=== PATIENT | female | born 1955 | race American Indian/Alaskan Native ===

== ENCOUNTER 2017-03-08 09:18 | Outpatient (CLI) | payer MEDICAID ==
--- NOTE | 2017-03-08 10:48 | Mammography Report ---
BILATERAL MAMMOGRAM with CAD: HISTORY:Cancer screening. This is a new baseline study since the patient's prior mammogram was performed in [place] was 11 years ago. FINDINGS: The breasts are almost entirely fat (<25% glandular). No mass, distortion, suspicious calcification, or skin change is seen. IMPRESSION: Negative mammogram. There is no mammographic evidence of malignancy. RECOMMENDATION: Follow-up per ACS guidelines. BI-RADS CATEGORY: 1 = Negative ACR BI-RADS MAMMOGRAPHIC CODES: 0 = Needs additional imaging evaluation; 1 = Negative; 2 = Benign; 3 = Probably benign; 4 = Suspicious; 5 = Malignant; 6 = Known biopsy-proven malignancy COMMENT: 1. Dense breast tissue, i.e., adenosis, fibrocystic changes, etc., may obscure an underlying neoplasm. 2. Approximately 10% of cancers are not detected with mammography. 3. A negative mammography report should not delay biopsy if a clinically suspicious mass is present. COMMENT: Patient follow-up letters are generated in [employer].
== END 2017-03-08 09:19 | disposition home or self-care (01) ==
LOC: MAMMO 09:18
PROVIDERS: ATTEND Internal Medicine
DX: Z12.31 Encounter for screening mammogram for malignant neoplasm of breast (principal)
CPT/HCPCS: 77067; G0202

== ENCOUNTER 2017-10-23 08:35 | Inpatient (IN) | payer MEDICAID, OTHER ==
[2017-10-23] MEDS ORDERED: ASPIRIN PO ONE (08:52)
[2017-10-23] MEDS ORDERED: NORCO 5/325 PO ONE (09:42)
[2017-10-23] MEDS ORDERED: APRESOLINE IV ONE ×2 (09:42→14:39)
[2017-10-23 09:57] LABS: Alanine Aminotransferase 22 units/L (7-56); Albumin 4.4 g/dL (3.9-5)
[2017-10-23 09:58] LABS: Basophils % (Auto) 0.5 % (0.0-1.8); Hematocrit 42.9 % (30.3-42.9); Hemoglobin 14.2 gm/dl (10.1-14.3); Lymphocytes # (Auto) 1.3 K/mm3 (1.2-5.4); Lymphocytes % (Auto) 27.4 % (13.4-35.0); Mean Corpuscular HGB Conc 33 % (30-34); Mean Corpuscular Hemoglobin 28 pg (28-32); Mean Corpuscular Volume 83 fl (79-97); Monocytes # (Auto) 0.3 K/mm3 (0.0-0.8); Monocytes % (Auto) 5.5 % (0.0-7.3); Platelet Count 265 K/mm3 (140-440); Red Blood Count 5.15 M/mm3 (3.65-5.03); Red Cell Distribution Width 15.1 % (13.2-15.2)
--- NOTE | 2017-10-23 10:03 | XRay Report ---
AP CHEST : 10/23/17 08:35:00 CLINICAL: Chest pain. COMPARISON:None FINDINGS: The heart is large. Redistribution of pulmonary blood flow to the upper lobes. The lungs are slightly underexpanded but clear. The bones and soft tissues are unremarkable. IMPRESSION: Cardiomegaly and pulmonary venous hypertension. No pulmonary edema no pleural effusion.
[2017-10-23 10:06] LABS: Bilirubin,Direct < 0.2 mg/dL (0-0.2)
[2017-10-23 10:07] LABS: BUN/Creatinine Ratio 17; Blood Urea Nitrogen 12 mg/dL (7-17); Calcium 9.4 mg/dL (8.4-10.2); Hemolysis Index 3
--- NOTE | 2017-10-23 11:11 | Emergency Department Report ---
ED Chest Pain HPI - General Chief Complaint: Chest Pain Stated Complaint: CHEST PAIN Time Seen by Provider: 10/23/17 09:25 Source: patient, EMS Mode of arrival: Stretcher Limitations: No Limitations - History of Present Illness Initial Comments: 62-year-old female with past medical history of previous CVA with residual right -sided deficits, elevated cholesterol, and hypertension presents to the hospital. Left-sided chest pain since last night. Patient's pain is sharp, intermittent, worse with palpation, movement, and coughing. Pain moderate in intensity. No shortness of breath. Positive diaphoresis. No fever. Patient cannot recall if she's ever had a stress test. No recent trauma or heavy lifting reported. Severity scale (0 -10): 5 - Related Data Allergies Allergy/AdvReac Type Severity Reaction Status Date / Time Penicillins Allergy Mild Angioedema Verified 10/23/17 09:56 Heart Score - HEART Score History: Slightly suspicious EKG: Non-specific Age: 45-65 Risk factors: > 3 risk factors or hx of atherosclerotic disease Troponin: < normal limit HEART Score: 4 ED Review of Systems ROS: Stated complaint: CHEST PAIN Other details as noted in HPI Comment: All other systems reviewed and negative Other: Constitutional: No fevers chills Eyes: No eye pain visual changes ENT: No ear pain or throat pain Neck: Denies pain Respiratory: Denies significant cough Cardiovascular: As per HPI GI: Denies abdominal pain, nausea, vomiting, diarrhea : Denies dysuria Musculoskeletal: Denies back pain, Skin: Denies rash, lesions, erythema Neurologic: Denies headache, numbness, weakness Psychiatric: Denies suicidal ideation, hallucinations ED Past Medical Hx - Past Medical History Hx CVA: Yes Hx Heart Attack/AMI: Yes - Social History Smoking Status: Former Smoker Substance Use Type: Marijuana ED Physical Exam - General Limitations: No Limitations - Other Other exam information: General: No limitations, patient is alert in no acute distress Head exam: Atraumatic, normocephalic Eyes exam: Normal appearance ENT: Moist mucous membrane, normal oropharynx Neck exam: Normal inspection, full range of motion, no meningismus nontender Respiratory exam: Clear to auscultation bilateral, no wheezes, rales, crackles. Reproducible left lower anterior chest wall tenderness Cardiovascular: Normal rate and rhythm Abdomen: Soft, nondistended, and nontender, with normal bowel sounds, no rebound, or guarding Extremity: Full range of motion normal inspection no deformity, no calf tenderness or edema Back: Normal Inspection, full range of motion, no tenderness Neurologic: Alert, oriented x3, cranial nerves intact, no motor or sensory deficit Psychiatric: normal affect, normal mood Skin: Warm, dry, intact ED Course Vital Signs 10/23/17 10/23/17 10/23/17 08:47 09:01 09:57 Temperature 98.6 F Pulse Rate 65 67 61 Respiratory 19 Rate Blood Pressure 209/77 200/91 206/82 O2 Sat by Pulse 99 Oximetry - Reevaluation(s) Reevaluation #1: 10/23/17 11:38 BP and pain improved with meds JOHN score - John Score Age > 65: (0) No Aspirin use within the Past 7 Days: (0) No 3 or more CAD Risk Factors: (1) Yes 2 or more Angina events in past 24 hrs: (1) Yes Known CAD with more than 50% Stenosis: (0) No Elevated Cardiac Markers: (0) No ST Deviation Greater than 0.5mm: (0) No JOHN Score: 2 ED Medical Decision Making - Lab Data Result diagrams: 10/23/17 09:24 10/23/17 09:24 Lab Results 10/23/17 10/23/17 10/23/17 Range/Units 09:24 09:24 09:24 WBC 4.7 (4.5-11.0) K/mm3 RBC 5.15 H (3.65-5.03) M/mm3 Hgb 14.2 (10.1-14.3) gm/dl Hct 42.9 (30.3-42.9) % MCV 83 (79-97) fl MCH 28 (28-32) pg MCHC 33 (30-34) % RDW 15.1 (13.2-15.2) % Plt Count 265 (140-440) K/mm3 Lymph % (Auto) 27.4 (13.4-35.0) % [place] % (Auto) 5.5 (0.0-7.3) % Eos % (Auto) 1.0 (0.0-4.3) % Baso % (Auto) 0.5 (0.0-1.8) % Lymph # 1.3 (1.2-5.4) K/mm3 [place] # 0.3 (0.0-0.8) K/mm3 Eos # 0.0 (0.0-0.4) K/mm3 Baso # 0.0 (0.0-0.1) K/mm3 Seg Neutrophils % 65.6 (40.0-70.0) % Seg Neutrophils # 3.1 (1.8-7.7) K/mm3 Sodium 139 (137-145) mmol/L Potassium 4.3 (3.6-5.0) mmol/L Chloride 100.0 (98-107) mmol/L Carbon Dioxide 23 (22-30) mmol/L Anion Gap 20 mmol/L BUN 12 (7-17) mg/dL Creatinine 0.7 (0.7-1.2) mg/dL Estimated GFR > 60 ml/min BUN/Creatinine Ratio 17 % Glucose 117 H (65-100) mg/dL Calcium 9.4 (8.4-10.2) mg/dL Total Bilirubin 0.40 (0.1-1.2) mg/dL Direct Bilirubin < 0.2 (0-0.2) mg/dL Indirect Bilirubin 0.2 mg/dL AST 17 (5-40) units/L ALT 22 (7-56) units/L Alkaline Phosphatase 113 (35-129) units/L Troponin T < 0.010 (0.00-0.029) ng/mL Total Protein 8.1 (6.3-8.2) g/dL Albumin 4.4 (3.9-5) g/dL Albumin/Globulin Ratio 1.2 % - EKG Data -: EKG Interpreted by Or EKG shows normal: sinus rhythm, axis (58), QRS complexes (114), ST-T waves (ant t inv) Rate: bradycardia (59) - EKG Data When compared to previous EKG there are: previous EKG unavailable - Radiology Data Radiology results: report reviewed Chest x-ray: Cardiomegaly and pulmonary venous hypertension. No pulmonary edema or effusion - Medical Decision Making Clinically patient's pain appears to be reproducible however, patient has multiple cardiac risk factors and EKG abnormalities without previous available for comparison. Case will be discussed with hospitalist for admission. Patient received IV hydralazine, [place], and aspirin in the ED - Differential Diagnosis chest wall pain, costochondritis, TN, angina, PE Critical Care Time: No Critical care attestation.: If time is entered above; I have spent that time in minutes in the direct care of this critically ill patient, excluding procedure time. ED Disposition Clinical Impression: Chest pain, Uncontrolled hypertension Disposition: OP ADMIT IP TO THIS HOSP Is pt being admited?: Yes Does the pt Need Aspirin: Yes Condition: Stable Instructions: Chest Pain (ED), Hypertension (ED) Time of Disposition: 11:38 (Dr Haney/hosp)
[2017-10-23] MEDS: APRESOLINE IV PRN ×2 (14:49→18:21)
--- NOTE | 2017-10-23 15:26 | History and Physical Report ---
History of Present Illness Date of examination: 10/23/17 Date of admission: 10/23/17 Chief complaint: CC L Sided chest pain since Last night History of present illness: History of Present Illness 62-year-old AA female with past medical history of previous CVA with residual right-sided deficits, Hyperlipidemia and hypertension presents to the hospital with left-sided chest pain since last night. Patient's pain is sharp, intermittent, worse with palpation, movement, and coughing. Pain moderate in intensity. No shortness of breath. Positive diaphoresis. No fever. Patient cannot recall if she's ever had a stress test. No recent trauma or heavy lifting reported. Past Medical History Hx CVA: Yes Hx Heart Attack/AMI: Yes Social History Smoking Status: Former Smoker Substance Use Type: Marijuana Surg hx N/A Fam Hx htn Review of Systems Stated complaint: CHEST PAIN Other details as noted in HPI Comment: All other systems reviewed and negative Other: Constitutional: No fevers chills Eyes: No eye pain visual changes ENT: No ear pain or throat pain Neck: Denies pain Respiratory: Denies significant cough Cardiovascular: As per HPI GI: Denies abdominal pain, nausea, vomiting, diarrhea : Denies dysuria Musculoskeletal: Denies back pain, Skin: Denies rash, lesions, erythema Neurologic: Denies headache, numbness, weakness Psychiatric: Denies suicidal ideation, hallucinations Medications and Allergies Allergies Allergy/AdvReac Type Severity Reaction Status Date / Time Penicillins Allergy Mild Angioedema Verified 10/23/17 09:56 Active Meds: Active Medications Hydralazine HCl (Apresoline) 10 mg IV Q3HR PRN PRN Reason: Blood Pressure Last Admin: 10/23/17 14:49 Dose: 10 mg Exam - Constitutional Vitals: Temp Pulse Resp BP Pulse Ox 98.6 F 70 18 213/90 98 10/23/17 08:47 10/23/17 14:49 10/23/17 14:30 10/23/17 14:49 10/23/17 14:30 Results - Labs CBC & Chem 7: 10/23/17 09:24 10/23/17 09:24 Labs: Laboratory Last Values WBC 4.7 K/mm3 (4.5-11.0) 10/23/17 09:24 RBC 5.15 M/mm3 (3.65-5.03) H 10/23/17 09:24 Hgb 14.2 gm/dl (10.1-14.3) 10/23/17:24 Hct 42.9 % (30.3-42.9) 10/23/17: MCV 83 fl (79-97) 10/23/17 09:24 MCH 28 pg (28-32) 10/23/17: MCHC 33 % (30-34) 10/23/17: RDW 15.1 % (13.2-15.2) 10/23/17: Plt Count 265 K/mm3 (140-440) 10/23/17: Lymph % (Auto) 27.4 % (13.4-35.0) 10/23/17: [place] % (Auto) 5.5 % (0.0-7.3) 10/23/17: Eos % (Auto) 1.0 % (0.0-4.3) 10/23/17: Baso % (Auto) 0.5 % (0.0-1.8) 10/23/17: Lymph # 1.3 K/mm3 (1.2-5.4) 10/23/17:24 [place] # 0.3 K/mm3 (0.0-0.8) 10/23/17: Eos # 0.0 K/mm3 (0.0-0.4) 10/23/17: Baso # 0.0 K/mm3 (0.0-0.1) 10/23/17: Seg Neutrophils % 65.6 % (40.0-70.0) 10/23/17: Seg Neutrophils # 3.1 K/mm3 (1.8-7.7) 10/23/17:24 Sodium 139 mmol/L (137-145) 10/23/17:24 Potassium 4.3 mmol/L (3.6-5.0) 10/23/17: Chloride 100.0 mmol/L (98-107) 10/23/17: Carbon Dioxide 23 mmol/L (22-30) 10/23/17: Anion Gap 20 mmol/L 10/23/17: BUN 12 mg/dL (7-17) 10/23/17 09:24 Creatinine 0.7 mg/dL (0.7-1.2) 10/23/17 09:24 Estimated GFR > 60 ml/min 10/23/17 09:24 BUN/Creatinine Ratio 17 % 10/23/17 09:24 Glucose 117 mg/dL (65-100) H 10/23/17 09:24 Calcium 9.4 mg/dL (8.4-10.2) 10/23/17 09:24 Total Bilirubin 0.40 mg/dL (0.1-1.2) 10/23/17 09:24 Direct Bilirubin < 0.2 mg/dL (0-0.2) 10/23/17 09:24 Indirect Bilirubin 0.2 mg/dL 10/23/17 09:24 AST 17 units/L (5-40) 10/23/17 09:24 ALT 22 units/L (7-56) 10/23/17 09:24 Alkaline Phosphatase 113 units/L (35-129) 10/23/17 09:24 Troponin T < 0.010 ng/mL (0.00-0.029) 10/23/17 12:55 Total Protein 8.1 g/dL (6.3-8.2) 10/23/17 09:24 Albumin 4.4 g/dL (3.9-5) 10/23/17 09:24 Albumin/Globulin Ratio 1.2 % 10/23/17 09:24
[2017-10-23] MEDS ORDERED: MORPHINE IV PRN (19:06)
[2017-10-23] MEDS ORDERED: TYLENOL PO PRN (19:06)
[2017-10-23] MEDS ORDERED: DILAUDID IV PRN (19:06)
[2017-10-23] MEDS ORDERED: ZOFRAN IV PRN (19:06)
[2017-10-23] MEDS ORDERED: MILK OF MAGNESIA PO PRN (19:06)
[2017-10-23] MEDS ORDERED: PERCOCET 5/325 PO PRN (19:06)
[2017-10-23] MEDS ORDERED: DULCOLAX PR PRN (19:06)
[2017-10-23] MEDS ORDERED: NORVASC PO ONE (20:00)
[2017-10-23] MEDS ORDERED: D5NS 1,000 ML IV SCH (20:00)
[2017-10-23] MEDS: COZAAR PO SCH (21:09)
[2017-10-23] MEDS: MOBIC PO SCH (21:09)
[2017-10-23] MEDS: COREG PO SCH (22:41)
[2017-10-23] MEDS ORDERED: D5NS 1,000 ML IV ONE (22:49)
[2017-10-24 05:03] LABS: Basophils % (Auto) 0.5 % (0.0-1.8); Eosinophils % (Auto) 0.9 % (0.0-4.3); Hematocrit 43.5 % (30.3-42.9); Hemoglobin 14.5 gm/dl (10.1-14.3); Lymphocytes # (Auto) 1.9 K/mm3 (1.2-5.4); Lymphocytes % (Auto) 41.1 % (13.4-35.0); Mean Corpuscular HGB Conc 33 % (30-34); Mean Corpuscular Hemoglobin 28 pg (28-32); Mean Corpuscular Volume 83 fl (79-97); Monocytes # (Auto) 0.5 K/mm3 (0.0-0.8); Monocytes % (Auto) 10.7 % (0.0-7.3); Platelet Count 266 K/mm3 (140-440); Red Blood Count 5.23 M/mm3 (3.65-5.03)
[2017-10-24 05:27] LABS: Alanine Aminotransferase 18 units/L (7-56); Albumin 4.3 g/dL (3.9-5); BUN/Creatinine Ratio 17; Blood Urea Nitrogen 19 mg/dL (7-17); Calcium 9.4 mg/dL (8.4-10.2); Hemolysis Index 23
[2017-10-24] MEDS: MOBIC PO SCH (09:00)
[2017-10-24] MEDS ORDERED: LOVENOX SUB-Q SCH ×2 (10:00)
[2017-10-24] MEDS ORDERED: LEXISCAN IV ONE ×2 (10:10→10:12)
[2017-10-24] MEDS: COZAAR PO SCH (11:41)
[2017-10-24] MEDS: COREG PO SCH (11:41)
[2017-10-24] MEDS: APRESOLINE IV PRN (11:41)
[2017-10-24] MEDS ORDERED: Fluarix Quad 2017-2018(36 MOS+ IM ONE (12:00)
--- NOTE | 2017-10-24 13:07 | Discharge Summary ---
Providers - Providers Date of Admission: 10/23/17 19:06 Attending physician: KIT MESSINA MD Primary care physician: DIRECTOR OF ACCREDITATION Hospitalization Reason for admission: chest pain Condition: Stable Hospital course: 62-year-old AA female with past medical history of previous CVA with residual right-sided deficits, Hyperlipidemia and hypertension presents to the hospital with left-sided chest pain since last night. Patient's pain is sharp, intermittent, worse with palpation, movement, and coughing. Pain moderate in intensity. No shortness of breath. Positive diaphoresis. No fever. Patient cannot recall if she's ever had a stress test. No recent trauma or heavy lifting reported. Patient's admission appears to have limited taken medication was noted to have elevated blood pressure. Pain was reproducible. The patient' s pain had resolved at the time of reevaluation. She did present to have a stress test which was negative. We did discuss her medications which she does not recall also discussed pharmacy. On restarting the medications that she recalled her blood pressure significantly improved. She is discharge recommendation to follow up with primary care physician. Discharge diagnosis Atypical chest pain likely costochondritis Hyperlipidemia CVA with right hemiplegia Hypertensive urgency resolved Disposition: DC-01 TO HOME OR SELFCARE Time spent for discharge: 35 mins Core Measure Documentation - Palliative Care Palliative Care/ Comfort Measures: Not Applicable - Core Measures Any of the following diagnoses?: none - VTE Discharge Requirements Deep Vein Thrombosis/Pulmonary Embolism Present on Admission: No Exam - Physical Exam Narrative exam: VITAL SIGNS: Reviewed. GENERAL: The patient appeared well nourished and normally developed. Vital signs as documented. HEAD: No signs of head trauma. EYES: Pupils are equal. Extraocular motions intact. EARS: Hearing grossly intact. MOUTH: Oropharynx is normal. NECK: No adenopathy, no JVD. CHEST: Chest with clear breath sounds bilaterally. No wheezes, rales, or rhonchi. CARDIAC: Regular rate and rhythm. S1 and S2, without murmurs, gallops, or rubs. VASCULAR: No Edema. Peripheral pulses normal and equal in all extremities. ABDOMEN: Soft, without detectable tenderness. No sign of distention. No rebound or guarding, and no masses palpated. Bowel Sounds normal. MUSCULOSKELETAL: Good range of motion of all major joints. Except right extremity. Extremities without clubbing, cyanosis or edema. NEUROLOGIC EXAM: Alert and oriented x 3. Right hemiparesis. Speech normal. Follows commands. PSYCHIATRIC: Mood normal. SKIN: No rash or lesions. - Constitutional Vitals: Temp Pulse Resp BP Pulse Ox 97.4 F L 74 13 188/82 97 10/24/17 08:59 10/24/17 11:41 10/24/17 11:31 10/24/17 11:41 10/24/17 11:31 Plan Activity: advance as tolerated, fall precautions Diet: low fat, low cholesterol Special Instructions: record daily BP diary Follow up with: PRIMARY CARE, [Primary Care Provider] - 7 Days [facility] [Outside] - 7 Days Prescriptions: Carvedilol [Coreg] 12.5 mg PO BID #60 tablet ISOSORBIDE MONOnitrate [Imdur ER] 30 mg PO QDAY #30 tablet Losartan [Cozaar] 100 mg PO QDAY #30 tablet
[2017-10-24] MEDS ORDERED: IMDUR PO SCH (14:00)
[2017-10-24 16:44] VITALS: BP 158/65
--- NOTE | 2017-10-25 01:20 | Treadmill Report ---
NUCLEAR CARDIAC IMAGING REPORT INDICATION FOR PROCEDURE: Chest pain. Informed consent was obtained. Lexiscan vasodilator stress testing was performed per standard protocol. Rest and stress nuclear cardiac imaging were performed per protocol with the intravenous administration of 10 mCi of technetium 99m Myoview and 28 mCi of technetium 99m Myoview respectively. Gated SPECT imaging demonstrates a post-stress left ventricular ejection fraction of 62% with normal wall motion. Myocardial perfusion imaging demonstrates no significant cavity change between stress and rest. No significant stress induced perfusion defects were seen. Nuclear cardiac imaging demonstrates grossly normal post-stress left ventricular systolic function with no significant evidence for myocardial ischemia or necrosis. [facility]# [id number] KATERIN/TEX
[2017-10-25] MEDS ORDERED: IMDUR PO SCH (10:00)
== END 2017-10-24 16:00 | disposition home or self-care (01) | DRG 206 ==
LOC: ED 08:35 → 4A 19:06
PROVIDERS: ADMIT Internal Medicine; ATTEND Internal Medicine
PROC: 3E0234Z Introduction of Serum, Toxoid and Vaccine into Muscle, Percutaneous Approach (ICD-10-PCS; principal; 2017-10-24)
DX: M94.0 Chondrocostal junction syndrome [Tietze] (principal); I69.351 Hemiplegia and hemiparesis following cerebral infarction affecting right dominant side; F12.90 Cannabis use, unspecified, uncomplicated; E78.5 Hyperlipidemia, unspecified; I16.0 Hypertensive urgency; I25.2 Old myocardial infarction; Z87.891 Personal history of nicotine dependence; Z88.0 Allergy status to penicillin; Z23 Encounter for immunization
CPT/HCPCS: 36415; 71045; 78452; 80048; 80053; 80074; 83036; 84484; 85025; 90686; 93005; 93010; 93017; A9502; J0360; J1650; J2785; J7042

== ENCOUNTER 2020-02-21 00:32 | Inpatient (IN) | payer MEDICAID ==
--- NOTE | 2020-02-21 00:38 | Emergency Department Report ---
ED Altered Mental Status HPI - General Chief Complaint: Altered Mental Status Stated Complaint: POSS STROKE PUI?: No Time Seen by Provider: 02/21/20 00:32 Source: patient Mode of arrival: Stretcher Limitations: Altered Mental Status - History of Present Illness Initial Comments: Patient is a 64-year-old female that presents emergency room with complaints of altered mental status, decreased responsiveness, confusion. Patient brought in by EMS. Report received from EMS. Per EMS: family states that the patient symptoms started 1 hour ago and the patient was staring off into space and not speaking and not answering questions. Family states that the patient stared off into space for approximately 10 minutes and then started talking but was confused. Patient's last known well time was 1 hour ago. Patient's blood press ure was checked by EMS and the patient blood pressure was 240/120. 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 Patient states she is not sure why she is here. MD Complaint: altered mental status, confusion, decreased responsiveness -: Sudden Severity: severe Consistency of Symptoms: waxing and waning Associated Symptoms: denies other symptoms - Related Data Previous Rx's Medication Instructions Recorded Last Taken Type ISOSORBIDE MONOnitrate [Imdur ER] 30 mg PO QDAY #30 tablet 10/24/17 Unknown Rx Losartan [Cozaar] 100 mg PO QDAY #30 tablet 10/24/17 Unknown Rx carvediloL [Coreg] 12.5 mg PO BID #60 tablet 10/24/17 Unknown Rx Allergies Allergy/AdvReac Type Severity Reaction Status Date / Time Penicillins Allergy Mild Angioedema Verified 10/23/17 09:56 ED Review of Systems ROS: Stated complaint: POSS STROKE Other details as noted in HPI Comment: Unobtainable due to pts medical conditions ED Past Medical Hx - Past Medical History Previous Medical History?: Yes Hx CVA: Yes Hx Heart Attack/AMI: Yes Hx Congestive Heart Failure: No Hx Diabetes: No Hx Asthma: No Hx COPD: No - Surgical History Past Surgical History?: No - Family History Family history: no significant - Social History Smoking Status: Former Smoker Substance Use Type: None - Medications Home Medications: Home Medications Medication Instructions Recorded Confirmed Last Taken Type ISOSORBIDE MONOnitrate [Imdur ER] 30 mg PO QDAY #30 tablet 10/24/17 Unknown Rx Losartan [Cozaar] 100 mg PO QDAY #30 tablet 10/24/17 Unknown Rx carvediloL [Coreg] 12.5 mg PO BID #60 tablet 10/24/17 Unknown Rx ED Physical Exam - General Limitations: Altered Mental Status, Physical Limitation General appearance: alert, in no apparent distress - Head Head exam: Present: atraumatic, normocephalic - Eye Eye exam: Present: normal appearance, PERRL Pupils: Present: normal accommodation - ENT ENT exam: Present: mucous membranes moist - Neck Neck exam: Present: normal inspection. Absent: tenderness, meningismus - Respiratory Respiratory exam: Present: normal lung sounds bilaterally. Absent: respiratory distress, wheezes, rales, rhonchi - Cardiovascular Cardiovascular Exam: Present: regular rate, normal rhythm. Absent: systolic murmur, diastolic murmur, rubs, gallop - GI/Abdominal GI/Abdominal exam: Present: soft, normal bowel sounds - Rectal Rectal exam: Present: deferred - Extremities Exam Extremities exam: Present: normal inspection - Back Exam Back exam: Present: normal inspection - Neurological Exam Neurological exam: Present: alert, altered - Skin Skin exam: Present: warm, dry, intact, normal color. Absent: rash - Assessment Assessment Interval: Baseline - Level of Consciousness 1a. Level of Consciousness: alert/keenly responsive - LOC Questions 1b. LOC Questions: answers both correctly - LOC Command 1c. LOC Commands: performs tasks correctly - Best Gaze 2. Best Gaze: normal - Visual 3. Visual: no visual loss - Facial Palsy 4. Facial Palsy: normal symmetrical movement - Motor Arm 5a. Motor Arm Left: no drift 5b. Motor Arm Right: no drift - Motor Leg 6a. Motor Leg Left: no drift 6b. Motor Leg Right: no drift - Limb Ataxia 7. Limb Ataxia: absent - Sensory 8. Sensory: normal - Best Language 9. Best Language: no aphasia - Dysarthria 10. Dysarthria: mild/moderate dysarthria - Extinction and Inattention 11. Extinction/Inattention: no abnormality - Scoring Total Score: 1 Stroke Severity: Minor Stroke ED Course Vital Signs 02/21/20 02/21/20 02/21/20 00:48 01:00 01:08 Pulse Rate 65 Respiratory 15 16 Rate Blood Pressure 239/91 Blood Pressure [Right] O2 Sat by Pulse 98 98 Oximetry 02/21/20 02/21/20 02/21/20 02:00 02:32 02:34 Pulse Rate 55 L 57 L 57 L Respiratory 17 20 19 Rate Blood Pressure 254/87 254/103 254/103 Blood Pressure [Right] O2 Sat by Pulse 99 98 99 Oximetry 02/21/20 02/21/20 02/21/20 02:36 02:38 02:40 Pulse Rate 59 L 54 L 56 L Respiratory 20 17 17 Rate Blood Pressure 205/80 205/80 205/80 Blood Pressure [Right] O2 Sat by Pulse 99 99 99 Oximetry 02/21/20 02/21/20 02/21/20 02:42 02:44 02:46 Pulse Rate 53 L 54 L 63 Respiratory 18 18 19 Rate Blood Pressure 205/80 205/80 205/80 Blood Pressure [Right] O2 Sat by Pulse 97 97 97 Oximetry 02/21/20 02/21/20 02/21/20 02:48 02:50 02:52 Pulse Rate 59 L 54 L 54 L Respiratory 18 19 17 Rate Blood Pressure 193/70 193/70 193/70 Blood Pressure [Right] O2 Sat by Pulse 98 97 98 Oximetry 02/21/20 02/21/20 02/21/20 02:54 02:56 02:58 Pulse Rate 58 L 61 72 Respiratory 16 17 19 Rate Blood Pressure 193/70 193/70 193/70 Blood Pressure [Right] O2 Sat by Pulse 100 97 Oximetry 02/21/20 02/21/20 02/21/20 03:00 03:20 04:07 Pulse Rate 70 58 L 67 Respiratory 14 15 Rate Blood Pressure 193/70 193/70 Blood Pressure 175/64 [Right] O2 Sat by Pulse 98 Oximetry - Reevaluation(s) Reevaluation #1: Initial evaluation done. Upon initial evaluation a code stroke was initiated. Neurology consulted. Patient taken by EMS directly to CT scan. 02/21/20 00:38 Reevaluation #2: Patient's blood pressure increased again. Patient will be given hydralazine. 02/21/20 02:15 Reevaluation #3: Nurse rechecked her blood pressure and blood pressure below 190. Patient was given 10 mg hydralazine. I discussed all results with patient. I discussed plan of care with patient. Patient agrees with plan of care and admission. Patient to be admitted to the hospitalist service. 02/21/20 02:56 - Consultations Consultation #1: I discussed the case with neurologist. Neurologist does not recommend TPA. Neurologist thinks this is a hypertensive encephalopathy versus TIA versus absence seizure. Neurologist recommends admission for stroke work-up and MRI and EEG 02/21/20 01:10 Consultation #2: Hospitalist consulted for admission. Hospitalist to admit patient. Bridge orders placed 02/21/20 02:56 - Lab Data Result diagrams: 02/21/20 00:51 02/21/20 00:51 Lab Results 02/21/20 02/21/20 02/21/20 Range/Units 00:51 00:51 00:51 WBC 5.9 (4.5-11.0) K/mm3 RBC 4.75 (3.65-5.03) M/mm3 Hgb 12.7 (10.1-14.3) gm/dl Hct 38.6 (30.3-42.9) % MCV 81 (79-97) fl MCH 27 L (28-32) pg MCHC 33 (30-34) % RDW 14.8 (13.2-15.2) % Plt Count 248 (140-440) K/mm3 Lymph % (Auto) 30.3 (13.4-35.0) % Mcmullen % (Auto) 6.0 (0.0-7.3) % Eos % (Auto) 1.4 (0.0-4.3) % Baso % (Auto) 0.4 (0.0-1.8) % Lymph # 1.8 (1.2-5.4) K/mm3 Mcmullen # 0.4 (0.0-0.8) K/mm3 Eos # 0.1 (0.0-0.4) K/mm3 Baso # 0.0 (0.0-0.1) K/mm3 Seg Neutrophils % 61.9 (40.0-70.0) % Seg Neutrophils # 3.6 (1.8-7.7) K/mm3 PT 13.6 (12.2-14.9) Sec. INR 1.06 (0.87-1.13) APTT 26.3 (24.2-36.6) Sec. Thrombin Time 15.6 (15.1-19.6) Sec. Sodium 139 (137-145) mmol/L Potassium 3.4 L (3.6-5.0) mmol/L Chloride 104.9 (98-107) mmol/L Carbon Dioxide 21 L (22-30) mmol/L Anion Gap 17 mmol/L BUN 15 (7-17) mg/dL Creatinine 0.9 (0.7-1.2) mg/dL Estimated GFR > 60 ml/min BUN/Creatinine Ratio 17 % Glucose 140 H (65-100) mg/dL Calcium 9.0 (8.4-10.2) mg/dL Troponin T < 0.010 (0.00-0.029) ng/mL Urine Color (Yellow) Urine Turbidity (Clear) Urine pH (5.0-7.0) Ur Specific [place] (1.003-1.030) Urine Protein (Negative) mg/dL Urine Glucose (UA) (Negative) mg/dL Urine Ketones (Negative) mg/dL Urine Blood (Negative) Urine Nitrite (Negative) Urine Bilirubin (Negative) Urine Urobilinogen (<2.0) mg/dL Ur Leukocyte Esterase (Negative) Urine WBC (Auto) (0.0-6.0) /HPF Urine RBC (Auto) (0.0-6.0) /HPF U Epithel Cells (Auto) (0-13.0) /HPF Urine Bacteria (Auto) (Negative) /HPF Urine Mucus /HPF Urine Opiates Screen Urine Methadone Screen Ur Barbiturates Screen Ur Phencyclidine Scrn Ur Amphetamines Screen U Benzodiazepines Scrn Urine Cocaine Screen U Marijuana (THC) Screen 02/21/20 02/21/20 Range/Units 03:22 03:22 WBC (4.5-11.0) K/mm3 RBC (3.65-5.03) M/mm3 Hgb (10.1-14.3) gm/dl Hct (30.3-42.9) % MCV (79-97) fl MCH (28-32) pg MCHC (30-34) % RDW (13.2-15.2) % Plt Count (140-440) K/mm3 Lymph % (Auto) (13.4-35.0) % Mcmullen % (Auto) (0.0-7.3) % Eos % (Auto) (0.0-4.3) % Baso % (Auto) (0.0-1.8) % Lymph # (1.2-5.4) K/mm3 Mcmullen # (0.0-0.8) K/mm3 Eos # (0.0-0.4) K/mm3 Baso # (0.0-0.1) K/mm3 Seg Neutrophils % (40.0-70.0) % Seg Neutrophils # (1.8-7.7) K/mm3 PT (12.2-14.9) Sec. INR (0.87-1.13) APTT (24.2-36.6) Sec. Thrombin Time (15.1-19.6) Sec. Sodium (137-145) mmol/L Potassium (3.6-5.0) mmol/L Chloride (98-107) mmol/L Carbon Dioxide (22-30) mmol/L Anion Gap mmol/L BUN (7-17) mg/dL Creatinine (0.7-1.2) mg/dL Estimated GFR ml/min BUN/Creatinine Ratio % Glucose (65-100) mg/dL Calcium (8.4-10.2) mg/dL Troponin T (0.00-0.029) ng/mL Urine Color Yellow (Yellow) Urine Turbidity Slightly-cloudy (Clear) Urine pH 5.0 (5.0-7.0) Ur Specific [place] 1.024 (1.003-1.030) Urine Protein 30 mg/dl (Negative) mg/dL Urine Glucose (UA) Neg (Negative) mg/dL Urine Ketones Neg (Negative) mg/dL Urine Blood Neg (Negative) Urine Nitrite Neg (Negative) Urine Bilirubin Neg (Negative) Urine Urobilinogen 2.0 (<2.0) mg/dL Ur Leukocyte Esterase Lg (Negative) Urine WBC (Auto) 36.0 H (0.0-6.0) /HPF Urine RBC (Auto) 24.0 (0.0-6.0) /HPF U Epithel Cells (Auto) 3.0 (0-13.0) /HPF Urine Bacteria (Auto) 1+ (Negative) /HPF Urine Mucus 2+ /HPF Urine Opiates Screen Presumptive negative Urine Methadone Screen Presumptive negative Ur Barbiturates Screen Presumptive negative Ur Phencyclidine Scrn Presumptive negative Ur Amphetamines Screen Presumptive negative U Benzodiazepines Scrn Presumptive negative Urine Cocaine Screen Presumptive negative U Marijuana (THC) Screen Presumptive positive - EKG Data -: EKG Interpreted by Id EKG shows normal: sinus rhythm, axis, intervals, QRS complexes, ST-T waves Rate: bradycardia - Radiology Data Radiology results: report reviewed CT HEAD WITHOUT CONTRAST INDICATION : Code stroke protocol. Strokelike symptoms. History of multiple strokes. TECHNIQUE: Axial, coronal and sagittal CT imaging was performed from the skull apex through the skull base without contrast. All CT scans at this location are performed using CT dose reduction for ALARA by means of automated exposure control. COMPARISON: CT head without contrast from 09/26/2019. FINDINGS: PARENCHYMA: No mass, midline shift, hemorrhage, extraaxial collection or acute territorial infarction. Probable chronic microvascular ischemic changes along the periventricular and deep white matter are stable. VENTRICLES: Symmetric and normal in size. SOFT TISSUES: No significant abnormality of the included soft tissues/orbits. BONES: No acute osseous abnormality. SINUSES: No significant abnormality. ADDITIONAL FINDINGS: None. IMPRESSION: No acute intracranial abnormality or significant change from the prior CT from 09/26/2019. - Medical Decision Making Patient is a 64-year-old female that presents emergency room for altered mental status, decreased responsiveness, confusion. Upon initial evaluation, the patient had a code stroke initiated. Patient was sent directly to CT scan. CT scan was negative for acute findings. Patient found to be hypertensive. Patient's initial blood pressure decreased however the patient blood pressure increased again, so the patient was given 10 mg of hydralazine. Patient blood pressure improved with medications. Patient's labs unremarkable except for UTI. Patient given antibiotics. Neurology was consulted early in her ER stay. Neurology did not recommend TPA. Neurology recommended EEG, MRI and admission. - Differential Diagnosis Hypertensive encephalopathy, TIA, absence seizure, CVA Critical Care Time: Yes Critical care time in (mins) excluding proc time.: 35 Critical care attestation.: If time is entered above; I have spent that time in minutes in the direct care of this critically ill patient, excluding procedure time. Critical Care Time: 35 minutes ED Disposition Clinical Impression: Decreased responsiveness, Absence seizure, Hypertensive encephalopathy, Uncontrolled hypertension, Malignant hypertension Altered mental status Qualifiers: Altered mental status type: unspecified Qualified Code(s): R41.82 - Altered mental status, unspecified UTI (urinary tract infection) Qualifiers: Urinary tract infection type: acute cystitis Hematuria presence: with hematuria Qualified Code(s): N30.01 - Acute cystitis with hematuria Disposition: DC-09 OP ADMIT IP TO THIS HOSP Is pt being admited?: Yes Does the pt Need Aspirin: No Condition: Critical Time of Disposition: 02:56
--- NOTE | 2020-02-21 01:03 | Cat Scan Report ---
CT HEAD WITHOUT CONTRAST INDICATION : Code stroke protocol. Strokelike symptoms. History of multiple strokes. TECHNIQUE: Axial, coronal and sagittal CT imaging was performed from the skull apex through the skul l base without contrast. All CT scans at this location are performed using CT dose reduction for ALA RA by means of automated exposure control. COMPARISON: CT head without contrast from 09/26/2019. FINDINGS: PARENCHYMA: No mass, midline shift, hemorrhage, extraaxial collection or acute territorial infarctio n. Probable chronic microvascular ischemic changes along the periventricular and deep white matter a re stable. VENTRICLES: Symmetric and normal in size. SOFT TISSUES: No significant abnormality of the included soft tissues/orbits. BONES: No acute osseous abnormality. SINUSES: No significant abnormality. ADDITIONAL FINDINGS: None. IMPRESSION: No acute intracranial abnormality or significant change from the prior CT from 09/26/2019. CRITICAL RESULT: Time of Discovery (TAIL WORKER/CDT): 23:53 Time of Communication (TAIL WORKER/CDT): 23:55 Licensed Practitioner Receiving Report: Dr. Aceves Read Back Performed: Yes. Signer Name: Austin Trevizo MD Signed: 02/21/2020 12:59 AM Workstation Name: [id number]
--- NOTE | 2020-02-21 01:10 | Consultation ---
History of Present Illness History of present illness: [facility] Date of Service: 02/21/2020 00:46:47 Impression: Rule Out Acute Ischemic Stroke Hypertensive encephalopathy vs seizure Comments/Sign-Out: 64 YO F with h/o stroke with residual right sided weakness and slurred speech presented with dizziness, nausea vomiting and increased slurred speech. Reports reduced sensation on the left. This could be recurrence of old stroke symptoms vs new stroke vs seizure vs hypertensive encephalopathy. Metrics: Last Known Well: 02/20/2020 16:00:00 [employer] Notification Time: 02/21/2020 00:45:58 Arrival Time: 02/21/2020 00:32:00 Stamp Time: 02/21/2020 00:46:47 Time First Login Attempt: 02/21/2020 00:53:28 Video Start Time: 02/21/2020 00:53:28 Symptoms: slurred speech NIHSS Start Assessment Time: 02/21/2020 00:56:10 Patient is not a candidate for tPA. Patient was not deemed candidate for tPA thrombolytics because of Last Well Known Above 4.5 Hours. Video End Time: 02/21/2020 01:06:08 CT head showed no acute hemorrhage or acute core infarct. Clinical Presentation is not Suggestive of Large Vessel Occlusive Disease ED Physician notified of diagnostic impression and management plan on 02/21/2020 01:07:15 Our recommendations are outlined below. Recommendations: Activate Stroke Protocol Admission/Order Set Stroke/Telemetry Floor Neuro Checks Bedside Swallow Eval DVT Prophylaxis IV Fluids, Normal Saline Head of Bed 30 Degrees Euglycemia and Avoid Hyperthermia (PRN Acetaminophen) Infectious/metabolic workup EEG Routine Consultation with Inhouse Neurology for Follow up Care Sign Out: Discussed with Emergency Department Provider History of Present Illness: Patient is a 64 year old Female. Patient was brought by EMS for symptoms of slurred speech 64 YO F with h/o stroke with residual right sided weakness and slurred speech presented with dizziness, nausea vomiting and increased slurred speech. She states that since about 4 PM yesterday she has been having dizziness and nausea and about an hour ago family noticed her to have a staring spell for 10 seconds and increased slurred speech, confusion and decreased responsiveness which is now improved. Examination: 1A: Level of Consciousness - Alert; keenly responsive + 0 1B: Ask Month and Age - Both Questions Right + 0 1C: Blink Eyes & Squeeze Hands - Performs Both Tasks + 0 2: Test Horizontal Extraocular Movements - Normal + 0 3: Test Visual Ramirez - No Visual Loss + 0 4: Test Facial Palsy (Use Grimace if Obtunded) - Normal symmetry + 0 5A: Test Left Arm Motor Drift - No Drift for 10 Seconds + 0 5B: Test Right Arm Motor Drift - No Drift for 10 Seconds + 0 6A: Test Left Leg Motor Drift - No Drift for 5 Seconds + 0 6B: Test Right Leg Motor Drift - No Drift for 5 Seconds + 0 7: Test Limb Ataxia (FNF/Heel-Lau) - No Ataxia + 0 8: Test Sensation - Mild-Moderate Loss: Less Sharp/More Dull + 1 9: Test Language/Aphasia - Normal; No aphasia + 0 10: Test Dysarthria - Mild-Moderate Dysarthria: Slurring but can be understood + 1 11: Test Extinction/Inattention - No abnormality + 0 NIHSS Score: 2 Patient/Family was informed the Neurology Consult would happen via TeleHealth consult by way of interactive audio and video telecommunications and consented to receiving care in this manner. Due to the immediate potential for life-threatening deterioration due to underlying acute neurologic illness, I spent 35 minutes providing critical care. This time includes time for face to face visit via telemedicine, review of medical records, imaging studies and discussion of findings with providers, the patient and/or family. Dr Lucrecia Hardin [facility] Case [id number] Medications and Allergies Allergies Allergy/AdvReac Type Severity Reaction Status Date / Time Penicillins Allergy Mild Angioedema Verified 10/23/17 09:56 Home Medications Medication Instructions Recorded Confirmed Last Taken Type ISOSORBIDE MONOnitrate [Imdur ER] 30 mg PO QDAY #30 tablet 10/24/17 Unknown Rx Losartan [Cozaar] 100 mg PO QDAY #30 tablet 10/24/17 Unknown Rx carvediloL [Coreg] 12.5 mg PO BID #60 tablet 10/24/17 Unknown Rx
[2020-02-21 01:22] LABS: Basophils % (Auto) 0.4 % (0.0-1.8); Eosinophils # (Auto) 0.1 K/mm3 (0.0-0.4); Eosinophils % (Auto) 1.4 % (0.0-4.3); Hematocrit 38.6 % (30.3-42.9); Hemoglobin 12.7 gm/dl (10.1-14.3); Lymphocytes # (Auto) 1.8 K/mm3 (1.2-5.4); Lymphocytes % (Auto) 30.3 % (13.4-35.0); Mean Corpuscular HGB Conc 33 % (30-34); Mean Corpuscular Volume 81 fl (79-97); Monocytes # (Auto) 0.4 K/mm3 (0.0-0.8); Platelet Count 248 K/mm3 (140-440); Red Blood Count 4.75 M/mm3 (3.65-5.03); Red Cell Distribution Width 14.8 % (13.2-15.2)
[2020-02-21 01:42] LABS: INR 1.06 (0.87-1.13); Partial Thromboplastin Time 26.3 Sec. (24.2-36.6); Thrombin Time 15.6 Sec. (15.1-19.6)
[2020-02-21 01:47] LABS: BUN/Creatinine Ratio 17; Blood Urea Nitrogen 15 mg/dL (7-17); Hemolysis Index 6
[2020-02-21] MEDS ORDERED: hydrALAZINE 20 MG/1 ML INJ IV ONE ×2 (02:34→02:55)
[2020-02-21 03:57] LABS: Amphetamine Screen,Urine PRESUMPTIVE NEGATIVE; Benzodiazepines Screen,Urine PRESUMPTIVE NEGATIVE; Cocaine Screen,Urine PRESUMPTIVE NEGATIVE; Methadone Screen,Urine PRESUMPTIVE NEGATIVE; Opiate Screen,Urine PRESUMPTIVE NEGATIVE
[2020-02-21 04:03] LABS: Bacteria,Urine 1+ /HPF (Negative); Bilirubin,Urine NEG (Negative); Blood,Urine NEG (Negative); Color,Urine Yellow (Yellow); Mucus,Urine 2+ /HPF
[2020-02-21 04:20] LABS: Cannabinoid Screen,Urine PRESUMPTIVE POSITIVE
[2020-02-21] MEDS ORDERED: ACETAMINOPHEN 325 MG TAB PO PRN ×2 (04:22)
[2020-02-21] MEDS ORDERED: PROMETHAZINE 25 MG RECT SUPP PR PRN (04:22)
[2020-02-21] MEDS ORDERED: ONDANSETRON 4 MG/2 ML INJ IV PRN ×2 (04:22)
[2020-02-21] MEDS ORDERED: MAGNESIUM HYDROXIDE (MOM) ORAL LIQD UDC PO PRN ×2 (04:22)
[2020-02-21] MEDS ORDERED: METOCLOPRAMIDE 10 MG TAB PO PRN (04:22)
--- NOTE | 2020-02-21 04:38 | History and Physical Report ---
History of Present Illness Date of examination: 02/21/20 Date of admission: 02/21/20 03:30 Chief complaint: Decreased Responsiveness Nausea and Vomiting Slurred Speech. History of present illness: 64-year-old female with known history of CVA with residual right-sided weakness brought into the emergency room today by EMS for decreased responsiveness, or changes in mental status and confusion. Symptoms were said to have started about an hour prior to arrival of EMS patient was said to be is staring into space and not responding to questions. Episode was said to have lasted about 10 minutes. There has been no history of fever or chills, no headache or dizziness, no chest pain or shortness of breath, no nausea vomiting, no hematuria or dysuria. En route to the hospital blood pressure was said to be about 240/120 mmHg. He had IV hydralazine with some improvement in blood pressure upon arrival in the emergency room. Symptoms had resolved upon arrival in the ER. Work-up in the emergency room has been unremarkable. She was also evaluated by the teleneurologist and recommendation was to have patient worked up for possible seizures versus CVA. Past History Past Medical History: hypertension, hyperlipidemia, stroke Past Surgical History: No surgical history Social history: smoking (Former smoker) Family history: no significant family history Medications and Allergies Allergies Allergy/AdvReac Type Severity Reaction Status Date / Time Penicillins Allergy Mild Angioedema Verified 10/23/17 09:56 Home Medications Medication Instructions Recorded Confirmed Last Taken Type ISOSORBIDE MONOnitrate [Imdur ER] 30 mg PO QDAY #30 tablet 10/24/17 Unknown Rx Losartan [Cozaar] 100 mg PO QDAY #30 tablet 10/24/17 Unknown Rx carvediloL [Coreg] 12.5 mg PO BID #60 tablet 10/24/17 Unknown Rx Active Meds: Active Medications Acetaminophen (Tylenol) 650 mg PO Q4H PRN PRN Reason: Pain MILD(1-3)/Fever >100.5/WHITE Aspirin (Aspirin) 325 mg PO QDAY ROSENDO Bisacodyl (Dulcolax) 10 mg [place] QDAY PRN PRN Reason: Constipation Enoxaparin Sodium (Enoxaparin) 40 mg SUB-Q QDAY@2200 ROSENDO Hydralazine HCl (Apresoline) 10 mg IV Q4HR PRN PRN Reason: Blood Pressure Levofloxacin/Dextrose (Levaquin 500mg/100ml) 500 mg in 100 mls @ 100 mls/hr IV ONCE ONE; Protocol Stop: 02/21/20 05:20 Magnesium Hydroxide (Milk Of Magnesia) 30 ml PO Q4H PRN PRN Reason: Constipation Metoclopramide HCl (Reglan) 10 mg PO Q6H PRN PRN Reason: Nausea And Vomiting Ondansetron HCl (Zofran) 4 mg IV Q8H PRN PRN Reason: Nausea And Vomiting Ondansetron HCl (Zofran) 4 mg IV Q8H PRN PRN Reason: Nausea And Vomiting Promethazine HCl (Phenergan) 25 mg [place] Q6H PRN PRN Reason: Nausea And Vomiting Sodium Chloride (Sodium Chloride Flush Syringe 10 Ml) 10 ml IV BID ROSENDO Sodium Chloride (Sodium Chloride Flush Syringe 10 Ml) 10 ml IV PRN PRN PRN Reason: LINE FLUSH Sodium Chloride (Sodium Chloride Flush Syringe 10 Ml) 10 ml INJ PRN PRN PRN Reason: LINE FLUSH Review of Systems Constitutional: no fever, no chills Cardiovascular: no chest pain, no palpitations Respiratory: no cough, no shortness of breath Gastrointestinal: nausea, vomiting, no abdominal pain, no diarrhea Genitourinary Female: no flank pain, no dysuria, no hematuria Musculoskeletal: no neck pain, no low back pain Integumentary: no rash, no pruritis Neurological: change in mentation, no headaches, no confusion Psychiatric: no anxiety, no depression Exam - Constitutional Vitals: Temp Pulse Resp BP Pulse Ox 67 15 175/64 98 02/21/20 04:07 02/21/20 04:07 02/21/20 04:07 02/21/20 04:07 General appearance: Present: no acute distress, well-nourished - EENT Eyes: Present: PERRL, EOM intact. Absent: scleral icterus ENT: hearing intact, clear oral mucosa, dentition normal - Neck Neck: Present: supple, normal ROM - Respiratory Respiratory effort: normal Respiratory: bilateral: CTA - Cardiovascular Rhythm: regular Heart Sounds: Present: S1 & S2, systolic murmur - Extremities Extremities: no ischemia, pulses intact, pulses symmetrical, No edema, Full ROM Peripheral Pulses: within normal limits - Abdominal General gastrointestinal: Present: soft, non-tender, non-distended, normal bowel sounds. Absent: mass - Integumentary Integumentary: Present: clear, warm, dry. Absent: jaundice, rash - Musculoskeletal Musculoskeletal: strength equal bilaterally - Psychiatric Psychiatric: appropriate mood/affect, intact judgment & insight, memory intact, cooperative - Neurologic Neurologic: CNII-XII intact, moves all extremities (Motor 2-3/5 on the right upper and right lower extremity) HEART Score - HEART Score Troponin: WBC 5.9 K/mm3 (4.5-11.0) 02/21/20 00:51 RBC 4.75 M/mm3 (3.65-5.03) 02/21/20 00:51 Hgb 12.7 gm/dl (10.1-14.3) 02/21/20 00:51 Hct 38.6 % (30.3-42.9) 02/21/20 00:51 MCV 81 fl (79-97) 02/21/20 00:51 MCH 27 pg (28-32) L 02/21/20 00:51 MCHC 33 % (30-34) 02/21/20 00:51 RDW 14.8 % (13.2-15.2) 02/21/20 00:51 Plt Count 248 K/mm3 (140-440) 02/21/20 00:51 Lymph % (Auto) 30.3 % (13.4-35.0) 02/21/20 00:51 Travis % (Auto) 6.0 % (0.0-7.3) 02/21/20 00:51 Eos % (Auto) 1.4 % (0.0-4.3) 02/21/20 00:51 Baso % (Auto) 0.4 % (0.0-1.8) 02/21/20 00:51 Lymph # 1.8 K/mm3 (1.2-5.4) 02/21/20 00:51 Travis # 0.4 K/mm3 (0.0-0.8) 02/21/20 00:51 Eos # 0.1 K/mm3 (0.0-0.4) 02/21/20 00:51 Baso # 0.0 K/mm3 (0.0-0.1) 02/21/20 00:51 Seg Neutrophils % 61.9 % (40.0-70.0) 02/21/20 00:51 Seg Neutrophils # 3.6 K/mm3 (1.8-7.7) 02/21/20 00:51 PT 13.6 Sec. (12.2-14.9) 02/21/20 00:51 INR 1.06 (0.87-1.13) 02/21/20 00:51 APTT 26.3 Sec. (24.2-36.6) 02/21/20 00:51 Thrombin Time 15.6 Sec. (15.1-19.6) 02/21/20 00:51 Sodium 139 mmol/L (137-145) 02/21/20 00:51 Potassium 3.4 mmol/L (3.6-5.0) L 02/21/20 00:51 Chloride 104.9 mmol/L (98-107) 02/21/20 00:51 Carbon Dioxide 21 mmol/L (22-30) L 02/21/20 00:51 Anion Gap 17 mmol/L 02/21/20 00:51 BUN 15 mg/dL (7-17) 02/21/20 00:51 Creatinine 0.9 mg/dL (0.7-1.2) 02/21/20 00:51 Estimated GFR > 60 ml/min 02/21/20 00:51 BUN/Creatinine Ratio 17 % 02/21/20 00:51 Glucose 140 mg/dL (65-100) H 02/21/20 00:51 Calcium 9.0 mg/dL (8.4-10.2) 02/21/20 00:51 Troponin T < 0.010 ng/mL (0.00-0.029) 02/21/20 00:51 Urine Color Yellow (Yellow) 02/21/20 03:22 Urine Turbidity Slightly-cloudy (Clear) 02/21/20 03:22 Urine pH 5.0 (5.0-7.0) 02/21/20 03:22 Ur Specific Dawson 1.024 (1.003-1.030) 02/21/20 03:22 Urine Protein 30 mg/dl mg/dL (Negative) 02/21/20 03:22 Urine Glucose (UA) Neg mg/dL (Negative) 02/21/20 03:22 Urine Ketones Neg mg/dL (Negative) 02/21/20 03:22 Urine Blood Neg (Negative) 02/21/20 03:22 Urine Nitrite Neg (Negative) 02/21/20 03:22 Urine Bilirubin Neg (Negative) 02/21/20 03:22 Urine Urobilinogen 2.0 mg/dL (<2.0) 02/21/20 03:22 Ur Leukocyte Esterase Lg (Negative) 02/21/20 03:22 Urine WBC (Auto) 36.0 /HPF (0.0-6.0) H 02/21/20 03:22 Urine RBC (Auto) 24.0 /HPF (0.0-6.0) 02/21/20 03:22 U Epithel Cells (Auto) 3.0 /HPF (0-13.0) 02/21/20 03:22 Urine Bacteria (Auto) 1+ /HPF (Negative) 02/21/20 03:22 Urine Mucus 2+ /HPF 02/21/20 03:22 Urine Opiates Screen Presumptive negative 02/21/20 03:22 Urine Methadone Screen Presumptive negative 02/21/20 03:22 Ur Barbiturates Screen Presumptive negative 02/21/20 03:22 Ur Phencyclidine Scrn Presumptive negative 02/21/20 03:22 Ur Amphetamines Screen Presumptive negative 02/21/20 03:22 U Benzodiazepines Scrn Presumptive negative 02/21/20 03:22 Urine Cocaine Screen Presumptive negative 02/21/20 03:22 U Marijuana (THC) Screen Presumptive positive 02/21/20 03:22 Results - Labs CBC & Chem 7: 02/21/20 00:51 02/21/20 00:51 Labs: Abnormal lab results 02/21/20 02/21/20 02/21/20 Range/Units 00:51 00:51 03:22 MCH 27 L (28-32) pg Potassium 3.4 L (3.6-5.0) mmol/L Carbon Dioxide 21 L (22-30) mmol/L Glucose 140 H (65-100) mg/dL Urine WBC (Auto) 36.0 H (0.0-6.0) /HPF Assessment and Plan - Patient Problems (1) Decreased responsiveness Current Visit: Yes Status: Acute Plan to address problem: Possibly secondary to CVA versus seizure disorder. Patient admitted and placed on telemetry. Will monitor mental status. Patient will be scheduled for carotid Doppler and MRI of the brain to rule out CVA. We will also schedule for EEG. (2) Hypertensive encephalopathy Current Visit: Yes Status: Acute Plan to address problem: We will resume patient's routine home medications and monitor vital signs closely. We will also place patient on IV hydralazine as needed. (3) DVT prophylaxis Current Visit: No Status: Acute Plan to address problem: Patient placed on subcutaneous Lovenox.. (4) Full code status Current Visit: Yes Status: Acute
[2020-02-21] MEDS: hydrALAZINE 20 MG/1 ML INJ IV PRN ×3 (06:45→22:22)
[2020-02-21] MEDS: LOSARTAN 50 MG TAB PO SCH (09:22)
[2020-02-21] MEDS: ASPIRIN 325 MG TAB PO SCH (09:22)
[2020-02-21] MEDS: carvediloL 12.5 MG TAB PO SCH ×2 (09:23→22:18)
--- NOTE | 2020-02-21 12:04 | Event Note ---
Date: 02/21/20 This is a follow up of an admission earlier this am. Pt seen and examined. We will cont. the plan as outlined in H & P. Total time = 35 min with > 20 min spent on coordination of care and counseling
--- NOTE | 2020-02-21 12:50 | Vascular Lab Report ---
"DUPLEX DOPPLER ULTRASOUND CAROTID, BILATERAL INDICATION: stroke. FINDINGS: RIGHT CAROTID: Moderate atherosclerotic plaque Right CCA velocity: 137 cm/sec. Right ICA peak systolic velocity: 167 cm/sec. ICA/CCA PSV Ratio: 1.9. Right Vertebral Artery: Antegrade flow. LEFT CAROTID: Mild atherosclerotic plaque Left CCA velocity: 108 cm/sec. Left ICA peak systolic velocity: 88 cm/sec. ICA/CCA PSV Ratio: 0.9. Left Vertebral Artery: Antegrade flow. IMPRESSION: 1. Right Internal Carotid Artery: 50-69% diameter stenosis. 2. Left Internal Carotid Artery: Less than 50% diameter stenosis. Velocity criteria are extrapolated from diameter data as defined by the Society of Radiologists in Ul trasound Consensus Conference, Radiology 2003; 229;340-346. Degree of Stenosis (%) || ICA PSV (cm/sec) || Plaque estimate (%) || ICA/CCA PSV Ratio Normal <125 None <2.0 <50 <125 <50 <2.0 50-69 125-230 50 2.0-4.0 70 but less than 100 >230 50 >4.0 Near occlusion High, low, or none visible variable Total occlusion None visible; no lumen N/A Signer Name: Martínez Dunn MD Signed: 02/21/2020 12:46 PM Workstation Name: [id number]"
--- NOTE | 2020-02-21 14:46 | Consultation ---
History of Present Illness Consult date: 02/21/20 Reason for Consult: Episode of unresponsiveness, confusion Chief complaint: Episode of unresponsiveness, confusion History of present illness: Patient is a 64 y/o woman w/ a h/o CVA w/ residual right sided weakness and dysarthria, neurosyphilis, HTN. She presented w/ symptoms altered mental status that started around midnight last night. Initially patient reportedly was staring off and not talking for about 10 minutes. She was noted to be confused afterwards, and was brought to [facility] for further evaluation. Patient's symptoms had improved upon arrival in ER. She was noted to have elevated BP of 240/140 in ER. She had also been c/o dizziness, nausea and vomiting prior to episode, during the day. Patient was noted to have decreased sensation on left side in ER when evaluation. She was found to have a UTI. She takes ASA 81mg daily, but has not been compliant with it recently. Son states that she was at [facility] in November, and was found to have neurosyphilis at that time, an was treated for it. Past History Past Medical History: hypertension, hyperlipidemia, stroke, other (history of neurosyphilis treated at [facility]) Past Surgical History: No surgical history Social history: smoking (Former smoker) Family history: no significant family history Medications and Allergies Allergies Allergy/AdvReac Type Severity Reaction Status Date / Time Penicillins Allergy Mild Angioedema Verified 10/23/17 09:56 Home Medications Medication Instructions Recorded Confirmed Last Taken Type ISOSORBIDE MONOnitrate [Imdur ER] 30 mg PO QDAY #30 tablet 10/24/17 Unknown Rx Losartan [Cozaar] 100 mg PO QDAY #30 tablet 10/24/17 Unknown Rx carvediloL [Coreg] 12.5 mg PO BID #60 tablet 10/24/17 Unknown Rx Active Meds: Active Medications Acetaminophen (Tylenol) 650 mg PO Q4H PRN PRN Reason: Pain MILD(1-3)/Fever >100.5/WHITE Aspirin (Aspirin) 325 mg PO QDAY [facility] Last Admin: 02/21/20 09:22 Dose: 325 mg Documented by: Bisacodyl (Dulcolax) 10 mg [place] QDAY PRN PRN Reason: Constipation Carvedilol (Coreg) 12.5 mg PO BID [facility] Last Admin: 02/21/20 09:23 Dose: 12.5 mg Documented by: Enoxaparin Sodium (Enoxaparin) 40 mg SUB-Q QDAY@2200 [facility] Hydralazine HCl (Apresoline) 10 mg IV Q4HR PRN PRN Reason: Blood Pressure Last Admin: 02/21/20 06:45 Dose: 10 mg Documented by: Isosorbide Mononitrate (Imdur) 30 mg PO QDAY [facility] Last Admin: 02/21/20 09:23 Dose: 30 mg Documented by: Losartan Potassium (Cozaar) 100 mg PO QDAY [facility] Last Admin: 02/21/20 09:22 Dose: 100 mg Documented by: Magnesium Hydroxide (Milk Of Magnesia) 30 ml PO Q4H PRN PRN Reason: Constipation Metoclopramide HCl (Reglan) 10 mg PO Q6H PRN PRN Reason: Nausea And Vomiting Ondansetron HCl (Zofran) 4 mg IV Q8H PRN PRN Reason: Nausea And Vomiting Promethazine HCl (Phenergan) 25 mg [place] Q6H PRN PRN Reason: Nausea And Vomiting Sodium Chloride (Sodium Chloride Flush Syringe 10 Ml) 10 ml IV BID [facility] Last Admin: 02/21/20 09:24 Dose: 10 ml Documented by: Sodium Chloride (Sodium Chloride Flush Syringe 10 Ml) 10 ml IV PRN PRN PRN Reason: LINE FLUSH Review of Systems All systems: negative Gastrointestinal: nausea, vomiting Neurological: change in mentation Physical Examination - Vital Signs Vital Signs: Vital Signs Pulse Ox 98 02/21/20 00:48 - Physical Exam Narrative exam: Patient is alert, awake, oriented x3 minus year, follows complex commands. Noted to have dysarthria which is baseline. No aphasia noted. EOMI, VFF, tongue midline, Decreased on Rt. to LT which is baseline, no facial weakness noted. 5/5 strength on LUE/LLE, RUE 4/5 which is baseline, RLE 3/5 which is baseline. Decreased on Rt. to light touch, which is baseline. Unable to perform HTS due to weakness, intact to FTN b/l. - Constitutional General appearance: comfortable - Level of Consciousness 1a. Level of Consciousness: alert/keenly responsive - LOC Questions 1b. LOC Questions: answers both correctly - LOC Command 1c. LOC Commands: performs tasks correctly - Best Gaze 2. Best Gaze: normal - Visual 3. Visual: no visual loss - Facial Palsy 4. Facial Palsy: normal symmetrical movement - Motor Arm 5a. Motor Arm Left: no drift 5b. Motor Arm Right: no drift - Motor Leg 6a. Motor Leg Left: no drift 6b. Motor Leg Right: some gravity effort - Limb Ataxia 7. Limb Ataxia: absent - Sensory 8. Sensory: mild/moderate sensory loss - Best Language 9. Best Language: no aphasia - Dysarthria 10. Dysarthria: mild/moderate dysarthria - Extinction and Inattention 11. Extinction/Inattention: no abnormality - Scoring Total Score: 4 Stroke Severity: Minor Stroke Results - Laboratory Findings CBC and BMP: 02/21/20 00:51 02/21/20 00:51 Abnormal Lab Findings: Abnormal Labs 02/21/20 02/21/20 02/21/20 00:51 00:51 03:22 MCH 27 L Potassium 3.4 L Carbon Dioxide 21 L Glucose 140 H Urine WBC (Auto) 36.0 H Assessment and Plan Patient is a 64 y/o woman w/ a h/o CVA w/ residual right sided weakness and d ysarthria, neurosyphilis, HTN, who p/w altered mental status, staring episode, and new left sided numbness. According to the patient's clinical findings, it is likely that the patient has had a TIA. Alternatively, she may have had hypertensive encephalopathy vs. seizure vs. metabolic encephalopathy in setting of UTI. Plan: 1. TIA vs. seizure vs. metabolic/hypertensive encephalopathy: - MRI brain: pending - MRA head/neck: pending - CT head: No acute abnormalities. - Echo: EF 60-65%, LA normal size, bubble study negative. - Cont. ASA. Patient had not been compliant with it previously. - Will check EEG - Spoke to son regarding possibility that this even was a seizure, given her h/o stroke and neurosyphilis, and option of starting AED. He stated that he would prefer to start patient on keppra at this time. Discussed risks/benefits, and son agreed to starting medication at this time. Patient stated that her son is her medical decision maker. Also discussed with son regarding no driving, and son states that she does not drive at all. Mentioned that if she were to drive in the future, she would need to first be cleared by DMV/DPS, as she had a potential seizure. Also discussed other seizure precautions. - Cont. statin. LDL goal <70 - Telemetry monitoring while in house - PT/OT/ST - DVT Ppx: Recommend lovenox - Cont. to treat UTI per primary team. 2. Hypertension: - Recommend BP goal of <220/120 to allow for permissive HTN for first 24-48 hours. Can target normotension after that. 3. History of Neurosyphilis: - Son states that this was treated at [facility] in November 2019. - Will continue to monitor patient. Thank you for allowing me to take part in the care of this patient. Gurvinder Turcios MD Neurology This clinical encounter was provided via live telemedicine platform. Consultative service was provided for neurology to support local providers. The Acute Teleneurology team should be contacted with any neurologic worsening or clinical changes, new test results, or new patient history that is reported to or discovered by the local team following completion of the teleneurology consultation, specifically that which has the potential to impact the consultative recommendations. Patient/Family was informed the Neurology Consult would happen via TeleHealth consult by way of interactive audio and video telecommunications and consented to receiving care in this manner. Due to the potential for life-threatening deterioration due to underlying neurologic illness, and limited resources available for patient care, telemedicine was used as means of patient care. Telemedicine consultation is limited in the extent of physical exam that can be virtually provided. Time spent evaluating patient includes time for face to face visit via telemedicine, review of medical records, imaging studies and discussion of findings with providers, the patient and/or family.
[2020-02-21] MEDS: ENOXAPARIN 40 MG/0.4 ML INJ SUB-Q SCH (22:18)
[2020-02-21] MEDS: levETIRAcetam 500 MG TAB PO SCH (22:18)
[2020-02-22 05:54] LABS: Basophils % (Auto) 0.4 % (0.0-1.8); Eosinophils # (Auto) 0.1 K/mm3 (0.0-0.4); Eosinophils % (Auto) 1.1 % (0.0-4.3); Hematocrit 38.6 % (30.3-42.9); Hemoglobin 12.7 gm/dl (10.1-14.3); Lymphocytes # (Auto) 2.2 K/mm3 (1.2-5.4); Mean Corpuscular HGB Conc 33 % (30-34); Mean Corpuscular Volume 82 fl (79-97); Monocytes # (Auto) 0.4 K/mm3 (0.0-0.8); Monocytes % (Auto) 8.2 % (0.0-7.3); Platelet Count 278 K/mm3 (140-440); Red Blood Count 4.69 M/mm3 (3.65-5.03); Red Cell Distribution Width 15.2 % (13.2-15.2)
[2020-02-22] MEDS: hydrALAZINE 20 MG/1 ML INJ IV PRN ×2 (06:21→22:19)
[2020-02-22 06:22] LABS: INR 1.11 (0.87-1.13)
[2020-02-22 06:23] LABS: Chol/HDL Ratio 4.36 %
--- NOTE | 2020-02-22 10:00 | Magnetic Resonance Report ---
MRI BRAIN 02/22/2020 INDICATION / CLINICAL INFORMATION: MAIN: STROKE, RIGHT SIDE WEAKNESS, HTN, AMS. TECHNIQUE: Multiplanar, multisequence MR images of the brain were obtained. COMPARISON: CT brain 02/21/2020 FINDINGS: BRAIN / INTRACRANIAL CONTENTS: Unenhanced MR images of the brain demonstrate no evidence of acute int racranial abnormality. Ventricles and sulci are prominent in size, consistent with pronounced diffuse cerebral atrophy. There is no evidence of acute ischemic injury, hemorrhage, or mass. Extensive chronic white matter T2 weighted signal changes present throughout the cerebral hemispheric white matter. There is evidence of chronic lacunar changes in the periventricular and deep white mat ter bilaterally, as well as in the right thalamus and right side of the smita. Small areas of chronic ischemic change are also noted in the right cerebellar hemisphere. There are no abnormal extra-axial fluid collections. EXTRACRANIAL: Unremarkable CRANIOCERVICAL JUNCTION: No significant abnormality. VASCULAR FLOW-VOIDS: No significant abnormality. IMPRESSION: No evidence of acute abnormality. Extensive chronic ischemic changes. Signer Name: Matthew Kay MD Signed: 02/22/2020 9:56 AM Workstation Name: [email or web address]
[2020-02-22] MEDS: carvediloL 12.5 MG TAB PO SCH ×2 (10:01→22:19)
[2020-02-22] MEDS: levETIRAcetam 500 MG TAB PO SCH ×2 (10:01→22:18)
[2020-02-22] MEDS: ASPIRIN 325 MG TAB PO SCH (10:01)
[2020-02-22] MEDS: LOSARTAN 50 MG TAB PO SCH (10:01)
--- NOTE | 2020-02-22 10:02 | Magnetic Resonance Report ---
MRA HEAD 02/22/2020 INDICATION / CLINICAL INFORMATION: MAIN: STROKE, RIGHT SIDE WEAKNESS, HTN, AMS. TECHNIQUE: Routine MRA of the head is performed. 3-D/MIP reformats postprocessed. COMPARISON: None available. FINDINGS: MRA HEAD: Intracranial internal carotid arteries: No significant abnormality. Anterior cerebral arteries: Diffuse atherosclerotic type irregularity Middle cerebral arteries: Diffuse atherosclerotic irregularity Intracranial vertebral arteries: The left vertebral artery is relatively hypoplastic and appears to e nd at the level of the posterior inferior cerebellar artery, normal variant. Basilar artery: No significant abnormality. Posterior cerebral arteries: Diffuse atherosclerotic type irregularity. The right posterior cerebral artery is primarily supplied by the posterior commuting indicating artery on this side. This is a nor mal anatomic variant IMPRESSION: Diffuse intracranial atherosclerotic changes. Signer Name: Matthew Kya MD Signed: 02/22/2020 9:58 AM Workstation Name: [id number]
--- NOTE | 2020-02-22 10:09 | Magnetic Resonance Report ---
MR MRA/MRV neck wo con INDICATION / CLINICAL INFORMATION: 64 years Female; MAIN: STROKE, RIGHT SIDE WEAKNESS, HTN, AMS. TECHNIQUE: 2-D time of flight performed prior to contrast. NASCET criteria used for stenosis evaluati on. COMPARISON: None available. FINDINGS: ARCH: Aortic arch and proximal great vessels are not well visualized on this exam. CAROTID ARTERIES: The visualized common and internal carotid arteries are widely patent. VERTEBRAL ARTERIES: Right dominant vertebral system seen. No significant stenosis appreciated. There is mild narrowing over short segment in the mid right vertebral artery-not felt to be hemodynamically significant. IMPRESSION: No significant stenosis appreciated on this unenhanced MRA of the neck. Signer Name: Tha Lau MD, III Signed: 02/22/2020 10:04 AM Workstation Name: [id number] [id number]
--- NOTE | 2020-02-22 11:54 | Progress Note ---
Subjective Date of service: 02/22/20 Interval history: photovoltaic technician asked me to dictate EEG report EEG shows no seizurtes activity... consider it normal for age... clinical correlation suggested as there is excessive movement artefact noted... basis for movement artefact is not epileptic or seizure based Thanks a full report dictated Objective - Vital Sign Vital Signs - 12hr 02/22/20 02/22/20 02/22/20 06:00 06:10 06:21 Temperature 98.3 F Pulse Rate 59 L 59 L 59 L Respiratory 18 Rate Blood Pressure 199/74 199/74 O2 Sat by Pulse 98 Oximetry 02/22/20 02/22/20 07:30 10:01 Temperature 98.0 F Pulse Rate 73 73 Respiratory 20 Rate Blood Pressure 162/66 162/66 O2 Sat by Pulse 96 Oximetry - Laboratory Findings CBC and BMP: 02/22/20 04:55 02/22/20 04:55 Abnormal Lab Findings: Abnormal Labs 02/21/20 02/21/20 02/21/20 00:51 00:51 03:22 MCH 27 L Lymph % (Auto) Calloway % (Auto) Potassium 3.4 L Carbon Dioxide 21 L BUN Glucose 140 H Cholesterol LDL Cholesterol Direct Urine WBC (Auto) 36.0 H 02/22/20 02/22/20 04:55 04:55 MCH 27 L Lymph % (Auto) 45.0 H C[place]ay % (Auto) 8.2 H Potassium Carbon Dioxide 21 L BUN 20 H Glucose 108 H Cholesterol 214 H LDL Cholesterol Direct 153 H Urine WBC (Auto)
--- NOTE | 2020-02-22 12:09 | Progress Note ---
Assessment and Plan Patient is a 64 y/o woman w/ a h/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 According to the patient's clinical findings, it is likely that the patient has had a TIA. Alternatively, she may have had hypertensive encephalopathy vs. seizure vs. metabolic encephalopathy in setting of UTI. Plan: 1. TIA vs. seizure vs. metabolic/hypertensive encephalopathy: - MRI brain: no acute abnormalities - MRA head/neck: No significant stenosis. Noted to areas of mild intracranial atherosclerosis in intracranial vasculature, however no significant stenosis. - CT head: No acute abnormalities. - Echo: EF 60-65%, LA normal size, bubble study negative. - Cont. ASA. Patient had not been compliant with it previously. - EEG: Normal EEG. No seizures or epileptiform activity. - Cont. Keppra 500mg BID. - Cont. statin. LDL goal <70 - Telemetry monitoring while in house - PT/OT/ST - DVT Ppx: Recommend lovenox - Cont. to treat UTI per primary team. 2. Hypertension: - Recommend BP goal of normotension, as no infarct noted on MRI. 3. History of Neurosyphilis: - Son states that this was treated at [facility] in November 2019. - Will sign off, as I am not covering neurology service over the weekend. Please consult neurologist covering the service over the weekend for further neurologic monitoring and management. Thank you for allowing me to take part in the care of this patient. Gurvinder Turcios MD Neurology This clinical encounter was provided via live telemedicine platform. Consultative service was provided for neurology to support local providers. The Acute Teleneurology team should be contacted with any neurologic worsening or clinical changes, new test results, or new patient history that is reported to or discovered by the local team following completion of the teleneurology consultation, specifically that which has the potential to impact the consultative recommendations. Patient/Family was informed the Neurology Consult would happen via TeleHealth consult by way of interactive audio and video telecommunications and consented to receiving care in this manner. Due to the potential for life-threatening deterioration due to underlying neurologic illness, and limited resources available for patient care, teleme dicine was used as means of patient care. Telemedicine consultation is limited in the extent of physical exam that can be virtually provided. Time spent evaluating patient includes time for face to face visit via telemedicine, review of medical records, imaging studies and discussion of findings with providers, the patient and/or family. Subjective Date of service: 02/22/20 Principal diagnosis: Metabolic encephalopathy, hypertensive encephalopathy, possible seizure Interval history: No acute events overnight. Objective - Exam Narrative Exam: Patient is alert, awake, oriented x3 minus year, follows complex commands. Noted to have dysarthria which is baseline. No aphasia noted. EOMI, VFF, tongue midline, Decreased on Rt. to LT which is baseline, no facial weakness noted. 5/5 strength on LUE/LLE, RUE 4/5 which is baseline, RLE 3/5 which is baseline. Decreased on Rt. to light touch, which is baseline. Unable to perform HTS due to weakness, intact to FTN b/l. - Vital Sign Vital Signs - 12hr 02/22/20 02/22/20 02/22/20 06:00 06:10 06:21 Temperature 98.3 F Pulse Rate 59 L 59 L 59 L Respiratory 18 Rate Blood Pressure 199/74 199/74 O2 Sat by Pulse 98 Oximetry 02/22/20 02/22/20 07:30 10:01 Temperature 98.0 F Pulse Rate 73 73 Respiratory 20 Rate Blood Pressure 162/66 162/66 O2 Sat by Pulse 96 Oximetry - General Apperance Constitutional: comfortable - Laboratory Findings CBC and BMP: 02/22/20 04:55 02/22/20 04:55 Abnormal Lab Findings: Abnormal Labs 02/21/20 02/21/20 02/21/20 00:51 00:51 03:22 MCH 27 L Lymph % (Auto) [place] % (Auto) Potassium 3.4 L Carbon Dioxide 21 L BUN Glucose 140 H Cholesterol LDL Cholesterol Direct Urine WBC (Auto) 36.0 H 02/22/20 02/22/20 04:55 04:55 MCH 27 L Lymph % (Auto) 45.0 H Gibson % (Auto) 8.2 H Potassium Carbon Dioxide 21 L BUN 20 H Glucose 108 H Cholesterol 214 H LDL Cholesterol Direct 153 H Urine WBC (Auto)
--- NOTE | 2020-02-22 12:46 | Progress Note ---
Assessment and Plan Assessment and plan: TIA vs. seizure vs. metabolic/hypertensive encephalopathy. MRI brain revealed no acute abnormalities. MRA head/neck showed no significant stenosis. However, noted to areas of mild intracranial atherosclerosis in intracranial vasculature but no significant stenosis. Echocardiogram revealed EF 60-65%, LA normal size, bubble study negative. EEG noted to be normal. No seizures or epileptiform activity. Continue Keppra 500 mg twice daily per neurology recommendations. Continue ASA and statin with LDL goal less than 70. Continue telemetry monitoring and PT/OT/ST UTI. Continue IV antibiotics and follow-up cultures. Hypertension: Control BP with goal of normotension, as no infarct noted on MRI. History of Neurosyphilis: - Son states that this was treated at [facility] in November 2019. 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 According to the patient's clinical findings, it is likely that the patient has had a TIA. Alternatively, she may have had hypertensive encephalopathy vs. seizure vs. metabolic encephalopathy in setting of UTI. No new issues overnight. Hospitalist Physical - Constitutional Vitals: Temp Pulse Resp BP Pulse Ox 98.0 F 73 20 162/66 96 02/22/20 07:30 02/22/20 10:01 02/22/20 07:30 02/22/20 10:01 02/22/20 07:30 General appearance: Present: no acute distress, well-nourished - EENT Eyes: Present: PERRL, EOM intact ENT: hearing intact, clear oral mucosa, dentition normal - Neck Neck: Present: supple, normal ROM - Respiratory Respiratory effort: normal Respiratory: bilateral: CTA - Cardiovascular Rhythm: regular Heart Sounds: Present: S1 & S2. Absent: gallop, rub - Extremities Extremities: no ischemia, No edema, Full ROM - Abdominal General gastrointestinal: soft, non-tender, non-distended, normal bowel sounds - Integumentary Integumentary: Present: clear, warm, dry - Neurologic Neurologic: CNII-XII intact, moves all extremities HEART Score - HEART Score Troponin: Troponin T < 0.010 ng/mL (0.00-0.029) 02/21/20 00:51 Results - Labs CBC & Chem 7: 02/22/20 04:55 02/22/20 04:55 Labs: Laboratory Last Values WBC 5.0 K/mm3 (4.5-11.0) 02/22/20 04:55 RBC 4.69 M/mm3 (3.65-5.03) 02/22/20 04:55 Hgb 12.7 gm/dl (10.1-14.3) 02/22/20 04:55 Hct 38.6 % (30.3-42.9) 02/22/20 04:55 MCV 82 fl (79-97) 02/22/20 04:55 MCH 27 pg (28-32) L 02/22/20 04:55 MCHC 33 % (30-34) 02/22/20 04:55 RDW 15.2 % (13.2-15.2) 02/22/20 04:55 Plt Count 278 K/mm3 (140-440) 02/22/20 04:55 Lymph % (Auto) 45.0 % (13.4-35.0) H 02/22/20 04:55 [place] % (Auto) 8.2 % (0.0-7.3) H 02/22/20 04:55 Eos % (Auto) 1.1 % (0.0-4.3) 02/22/20 04:55 Baso % (Auto) 0.4 % (0.0-1.8) 02/22/20 04:55 Lymph # 2.2 K/mm3 (1.2-5.4) 02/22/20 04:55 [place] # 0.4 K/mm3 (0.0-0.8) 02/22/20 04:55 Eos # 0.1 K/mm3 (0.0-0.4) 02/22/20 04:55 Baso # 0.0 K/mm3 (0.0-0.1) 02/22/20 04:55 Seg Neutrophils % 45.3 % (40.0-70.0) 02/22/20 04:55 Seg Neutrophils # 2.3 K/mm3 (1.8-7.7) 02/22/20 04:55 PT 14.1 Sec. (12.2-14.9) 02/22/20 04:55 INR 1.11 (0.87-1.13) 02/22/20 04:55 APTT 26.3 Sec. (24.2-36.6) 02/21/20 00:51 Thrombin Time 15.6 Sec. (15.1-19.6) 02/21/20 00:51 Sodium 142 mmol/L (137-145) 02/22/20 04:55 Potassium 4.1 mmol/L (3.6-5.0) D 02/22/20 04:55 Chloride 107.0 mmol/L (98-107) 02/22/20 04:55 Carbon Dioxide 21 mmol/L (22-30) L 02/22/20 04:55 Anion Gap 18 mmol/L 02/22/20 04:55 BUN 20 mg/dL (7-17) H 02/22/20 04:55 Creatinine 1.2 mg/dL (0.7-1.2) 02/22/20 04:55 Estimated GFR 55 ml/min 02/22/20 04:55 BUN/Creatinine Ratio 17 % 02/22/20 04:55 Glucose 108 mg/dL (65-100) H 02/22/20 04:55 Calcium 9.0 mg/dL (8.4-10.2) 02/22/20 04:55 Troponin T < 0.010 ng/mL (0.00-0.029) 02/21/20 00:51 Triglycerides 118 mg/dL (2-149) 02/22/20 04:55 Cholesterol 214 mg/dL (50-199) H 02/22/20 04:55 LDL Cholesterol Direct 153 mg/dL (50-130) H 02/22/20 04:55 HDL Cholesterol 49 mg/dL (40-59) 02/22/20 04:55 Cholesterol/HDL Ratio 4.36 % 02/22/20 04:55 Urine Color Yellow (Yellow) 02/21/20 03:22 Urine Turbidity Slightly-cloudy (Clear) 02/21/20 03:22 Urine pH 5.0 (5.0-7.0) 02/21/20 03:22 Ur Specific [place] 1.024 (1.003-1.030) 02/21/20 03:22 Urine Protein 30 mg/dl mg/dL (Negative) 02/21/20 03:22 Urine Glucose (UA) Neg mg/dL (Negative) 02/21/20 03:22 Urine Ketones Neg mg/dL (Negative) 02/21/20 03:22 Urine Blood Neg (Negative) 02/21/20 03:22 Urine Nitrite Neg (Negative) 02/21/20 03:22 Urine Bilirubin Neg (Negative) 02/21/20 03:22 Urine Urobilinogen 2.0 mg/dL (<2.0) 02/21/20 03:22 Ur Leukocyte Esterase Lg (Negative) 02/21/20 03:22 Urine WBC (Auto) 36.0 /HPF (0.0-6.0) H 02/21/20 03:22 Urine RBC (Auto) 24.0 /HPF (0.0-6.0) 02/21/20 03:22 U Epithel Cells (Auto) 3.0 /HPF (0-13.0) 02/21/20 03:22 Urine Bacteria (Auto) 1+ /HPF (Negative) 02/21/20 03:22 Urine Mucus 2+ /HPF 02/21/20 03:22 Urine Opiates Screen Presumptive negative 02/21/20 03:22 Urine Methadone Screen Presumptive negative 02/21/20 03:22 Ur Barbiturates Screen Presumptive negative 02/21/20 03:22 Ur Phencyclidine Scrn Presumptive negative 02/21/20 03:22 Ur Amphetamines Screen Presumptive negative 02/21/20 03:22 U Benzodiazepines Scrn Presumptive negative 02/21/20 03:22 Urine Cocaine Screen Presumptive negative 02/21/20 03:22 U Marijuana (THC) Screen Presumptive positive 02/21/20 03:22 Drugs of Abuse Note Disclamer 02/21/20 03:22 Microbiology: Microbiology 02/21/20 03:22 Urine,Clean Catch Urine Culture - Preliminary - Diagnostic Impressions Diagnostic Impressions: Echocardiogram 02/21/20 04:28 Transthoracic Echocardiogram Indication: Stroke BP: 191/82 HR: 68 Conclusions *Global left ventricular systolic function is normal. *The estimated ejection fraction is 60-65%. *Moderate concentric left ventricular hypertrophy is observed. *There is trace of mitral regurgitation. *There is trace tricuspid regurgitation. *A patent foramen ovale is not demonstrated by agitated saline contrast. *The study quality is technically difficult. Findings Procedure Info: The study quality is technically difficult. Left Ventricle: The left ventricular chamber size is normal. Moderate concentric left ventricular hypertrophy is observed. Global left ventricular systolic function is normal. The estimated ejection fraction is 60-65%. Left Atrium: The left atrial chamber size is normal. Right Ventricle: The right ventricular cavity size is normal. Right Atrium: The right atrial cavity size is normal. A patent foramen ovale is not demonstrated by agitated saline contrast. Aortic Valve: The aortic valve is trileaflet. The aortic valve leaflets are moderately thickened. There is no evidence of aortic regurgitation. There is no evidence of aortic stenosis. Mitral Valve: The mitral valve leaflets are moderately thickened. There is trace of mitral regurgitation. There is no evidence of mitral stenosis. Tricuspid Valve: There is trace tricuspid regurgitation. No pulmonary hypertension is noted. Pulmonic Valve: There is trace pulmonic regurgitation. Pericardium: There is no pericardial effusion. Aorta: There is no dilatation of the ascending aorta. There is no dilatation of the aortic root. Venous: The inferior vena cava appears normal in size. Contrast: Intravenous agitated saline contrast was used to assess intracardiac shunting. Measurements Chambers 2D Name Value Normal Range IVSd (2D) 1.49 cm (0.6 - 1.1) LVPWd (2D) 0.92 cm (0.6 - 1.1) LVIDd (2D) 3.64 cm (3.7 - 5.6) LVIDs (2D) 1.89 cm (2 - 3.8) LV FS (2D) 48.1 % - EF Teichholz (2D) 80.31 % - Ao root diameter (2D) 2.65 cm (2 - 3.7) Volumes/Mass Name Value Normal Range LA ESV SP 4CH (A/L) 49.3 ml - LA ESV SP 2CH (A/L) 36.24 ml - LA ESV BP (A/L) 43.56 ml - LA ESV SP 4CH (MOD) 47.02 ml - LA ESV SP 2CH (MOD) 33.81 ml - LV EDV SP 4CH (MOD) 77.58 ml - LV ESV SP 4CH (MOD) 24.39 ml - EF SP 4CH (MOD) 68.56 % - Diastolic/Systolic Function Name Value Normal Range MV E-wave Vmax 0.67 m/sec - MV deceleration time 250.89 msec - MV A-wave Vmax 0.84 m/sec - MV E:A ratio 0.8 ratio - Aortic Valve Name Value Normal Range AV Vmax 1.49 m/sec - AV VTI 30 cm - AV peak gradient 8.93 mmHg - AV mean gradient 4.6 mmHg - LVOT diameter 2.02 cm - LVOT Vmax 1.09 m/sec - LVOT VTI 22.5 cm - LVOT peak gradient 4.74 mmHg - LVOT mean gradient 2.25 mmHg - SV LVOT 71.75 ml - DEE (continuity Vmax) 2.32 cm2 - DEE (continuity VTI) 2.39 cm2 - Ascending Ao 2.85 cm - Mitral Valve Name Value Normal Range MV PHT 77.65 msec - MVA (PHT) 2.83 cm2 - Pulmonic Valve/Qp:Qs Name Value Normal Range PV Vmax 1.01 m/sec - PV VTI 16.4 cm - PV peak gradient 4.1 mmHg - PV mean gradient 2.02 mmHg - RVOT Vmax 0.88 m/sec - RVOT VTI 16.47 cm - RVOT peak gradient 3.12 mmHg - Bragg/IV: Voiding Method Bedside Commode IV Catheter Type [Left INT / Saline Lock Antecubital] Active Medications - Current Medications Current Medications: Generic Name Dose Route Start Last Admin Trade Name Freq PRN Reason Stop Dose Admin Acetaminophen 650 mg 02/21/20 04:22 Tylenol PO Q4H PRN Pain MILD(1-3)/Fever >100.5/WHITE Aspirin 325 mg 02/21/20 10:00 02/22/20 10:01 Aspirin PO 325 mg QDAY ROSENDO Administration Bisacodyl 10 mg 02/21/20 04:22 Dulcolax VT QDAY PRN Constipation Carvedilol 12.5 mg 02/21/20 10:00 02/22/20 10:01 Coreg PO 12.5 mg BID ROSENDO Administration Enoxaparin Sodium 40 mg 02/21/20 22:00 02/21/20 22:18 Enoxaparin SUB-Q 40 mg QDAY@2200 ROSENDO Administration Hydralazine HCl 10 mg 02/21/20 04:31 02/22/20 06:21 Apresoline IV 10 mg Q4HR PRN Administration Blood Pressure Isosorbide Mononitrate 30 mg 02/21/20 10:00 02/22/20 10:01 Imdur PO 30 mg QDAY ROSENDO Administration Levetiracetam 500 mg 02/21/20 22:00 02/22/20 10:01 Keppra PO 500 mg BID ROSENDO Administration Losartan Potassium 100 mg 02/21/20 10:00 02/22/20 10:01 Cozaar PO 100 mg QDAY ROSENDO Administration Magnesium Hydroxide 30 ml 02/21/20 04:22 Milk Of Magnesia PO Q4H PRN Constipation Metoclopramide HCl 10 mg 02/21/20 04:22 Reglan PO Q6H PRN Nausea And Vomiting Ondansetron HCl 4 mg 02/21/20 04:22 Zofran IV Q8H PRN Nausea And Vomiting Promethazine HCl 25 mg 02/21/20 04:22 Phenergan VT Q6H PRN Nausea And Vomiting Sodium Chloride 10 ml 02/21/20 10:00 02/22/20 10:02 Sodium Chloride Flush Syringe 10 Ml IV 10 ml BID ROSENDO Administration Sodium Chloride 10 ml 02/21/20 04:22 02/22/20 06:24 Sodium Chloride Flush Syringe 10 Ml IV 10 ml PRN PRN Administration LINE FLUSH Nutrition/Malnutrition Assess - Dietary Evaluation Nutrition/Malnutrition Findings: Nutrition Notes Start: 02/21/20 14:24 Freq: Status: Active Protocol: Document 02/21/20 14:24 LM (Rec: 02/21/20 14:28 LM [id number]) Nutrition Notes Need for Assessment generated from: MD Order Initial or Follow up Brief Note Current Diagnosis Hypertension,Hyperlipidemia Current Diet cardiac Labs/Tests K 3.4 Pertinent Medications Reviewed Height 5 ft Weight 79.7 kg [place] Body Weight (kg) 45.45 BMI 34.3 Weight Status Obese Subjective/Other Information MD consult for diet education. Pt not in room at time of visit. Nutrition Intervention Follow-Up By: 02/22/20 Additional Comments F/U for heart healthy diet ed
[2020-02-22] MEDS: ENOXAPARIN 40 MG/0.4 ML INJ SUB-Q SCH (22:18)
--- NOTE | 2020-02-23 08:36 | Discharge Summary ---
Providers - Providers Date of Admission: 02/21/20 03:30 Date of discharge: 02/23/20 Attending physician: MARIANNE BROOKE 02/21/20 04:22 Consult to Dietitian/Nutrition [CONS] Routine Physician Instructions: Reason For Exam: Reason for Consult: Nutrition Recommendations Reason for Consult: Diet education Consult to Physician [CONS] Routine Comment: Consulting Provider: VLADIMIR JOSE Physician Instructions: Reason For Exam: TIA VS CVA,DECREASED RESPONSIVENESS Occupational Therapy Evaluate and Treat [CONS] Routine Comment: Reason For Exam: Neuro deficits Physical Therapy Evaluation and Treat [CONS] Routine Comment: Reason For Exam: Neuro deficits Primary care physician: CARDIAC EXERCISE SPECIALIST Hospitalization Reason for admission: HTN encephalopathy Condition: Critical Hospital course: Patient is a 64 y/o woman w/ a h/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 The patient was admitted with diagnosis of encephalopathy, accelerated hypertension and UTI. Etiology of the encephal opathy was felt to be multifactorial secondary to hypertensive vs. seizure vs. toxic metabolic encephalopathy in setting of UTI. Patient was seen by neurology in consultation and had extensive work-up which included MRI brain revealed no acute abnormalities. MRA head/neck showed no significant stenosis. However, noted to areas of mild intracranial atherosclerosis in intracranial vasculature but no significant stenosis. Echocardiogram revealed EF 60-65%, LA normal size, bubble study negative. EEG noted to be normal. No seizures or epileptiform activity. Neurology recommended the patient be continued on Keppra 500 mg twice daily. Neurology also recommended to continue ASA and statin with LDL goal less than 70. The patient was evaluated by PT/OT/ST. Physical therapy felt the patient was at her baseline level of functioning. She had a previous stroke with right lower extremity deficits. PT felt that there were no acute skilled needs and patient could be discharged home with rolling walker. Patient was felt to receive maximal hospital benefit and thus will be discharged home. Dedicated discharge time 35 minutes. Disposition: [id number] TO HOME OR SELFCARE Time spent for discharge: 35 - Discharge Diagnoses (1) Seizure Status: Acute (2) Altered mental status Status: Acute Qualifiers: Altered mental status type: unspecified Qualified Code(s): R41.82 - Altered mental status, unspecified (3) Hypertensive encephalopathy Status: Acute (4) Malignant hypertension Status: Acute (5) UTI (urinary tract infection) Status: Acute Qualifiers: Urinary tract infection type: acute cystitis Hematuria presence: with hematuria Qualified Code(s): N30.01 - Acute cystitis with hematuria Core Measure Documentation - Palliative Care Palliative Care/ Comfort Measures: Not Applicable - Core Measures Any of the following diagnoses?: none Exam - Constitutional Vitals: Temp Pulse Resp BP Pulse Ox 98.1 F 56 L 18 193/72 96 02/23/20 04:49 02/23/20 07:21 02/23/20 07:21 02/23/20 07:21 02/23/20 07:21 General appearance: Present: no acute distress, well-nourished - EENT Eyes: Present: PERRL ENT: hearing intact, clear oral mucosa - Neck Neck: Present: supple, normal ROM - Respiratory Respiratory effort: normal Respiratory: bilateral: CTA - Cardiovascular Heart Sounds: Present: S1 & S2. Absent: rub, click - Extremities Extremities: pulses symmetrical, No edema Peripheral Pulses: within normal limits - Abdominal General gastrointestinal: Present: soft, non-tender, non-distended, normal bowel sounds Female genitourinary: Present: normal - Integumentary Integumentary: Present: clear, warm, dry - Musculoskeletal Musculoskeletal: gait normal, strength equal bilaterally - Psychiatric Psychiatric: appropriate mood/affect, intact judgment & insight - Neurologic Neurologic: CNII-XII intact, moves all extremities Plan Activity: advance as tolerated Weight Bearing Status: Weight Bear as Tolerated Diet: low fat, low cholesterol, low salt Follow up with: PRIMARY CARE, [Primary Care Provider] - 3-5 Days VLADIMIR JOSE MD [Staff Physician] - 7 Days Prescriptions: Aspirin 325 mg PO QDAY #30 tablet carvediloL [Coreg] 12.5 mg PO BID #60 tablet Losartan [Cozaar] 100 mg PO QDAY #30 tablet ISOSORBIDE MONOnitrate [Imdur ER] 30 mg PO QDAY #30 tablet levETIRAcetam [Keppra TAB] 500 mg PO BID #60 tablet AtorvaSTATin [Lipitor] 40 mg PO QHS #30 tab NIFEdipine XL [Procardia Xl] 60 mg PO Q12HR #60 tablet
[2020-02-23] MEDS: ASPIRIN 325 MG TAB PO SCH (09:03)
[2020-02-23] MEDS: levETIRAcetam 500 MG TAB PO SCH (09:03)
[2020-02-23] MEDS: carvediloL 12.5 MG TAB PO SCH (09:04)
[2020-02-23] MEDS: LOSARTAN 50 MG TAB PO SCH (09:04)
[2020-02-23] MEDS ORDERED: NIFEdipine XL 60 MG TAB PO SCH (10:00)
[2020-02-23 12:45] VITALS: BP 222/69
[2020-02-23] MEDS: hydrALAZINE 20 MG/1 ML INJ IV PRN (12:46)
== END 2020-02-23 17:24 | disposition home or self-care (01) | DRG 100 ==
LOC: ED 00:32 → 4A 03:30
PROVIDERS: ADMIT Internal Medicine Geriatric Medicine; ATTEND Hospitalist
DX: R56.9 Unspecified convulsions (principal); G92 Toxic encephalopathy; I67.2 Cerebral atherosclerosis; I67.4 Hypertensive encephalopathy; E78.5 Hyperlipidemia, unspecified; N30.01 Acute cystitis with hematuria; R47.1 Dysarthria and anarthria; R47.81 Slurred speech; I25.2 Old myocardial infarction; I69.951 Hemiplegia and hemiparesis following unspecified cerebrovascular disease affecting right dominant side; Z88.0 Allergy status to penicillin; Z87.891 Personal history of nicotine dependence; Z79.899 Other long term (current) drug therapy
CPT/HCPCS: 36415; 70450; 70544; 70547; 70551; 80048; 80061; 80307; 81001; 84484; 85025; 85610; 85670; 85730; 87086; 87641; 93005; 93306; 93880; 95819; 96374; G0378; J0360; J1650; J1956